=== PATIENT | female | born 1945 | race Caucasian/White ===

== ENCOUNTER 2023-07-06 06:07 | Day surgery (SDC) | payer OTHER ==
[~2023-07-06] VITALS: Ht 157.5 cm; Wt 73.5 kg
--- NOTE | 2023-07-06 06:30 | NUR ---
07/06/23 0630 Kristie Sheldon AT 0628 PLEDGET AT 0630
--- NOTE | 2023-07-06 08:26 | NUR ---
07/06/23 0826 Geo Mars iv removed intact. site wnl.
== END 2023-07-06 08:24 | disposition home or self-care (01) ==
LOC: ORSCSDS 06:07
PROVIDERS: Ophthalmology
PROC: 08RJ3JZ Replacement of Right Lens with Synthetic Substitute, Percutaneous Approach (ICD-10-PCS; principal; 2023-07-06 07:30)
DX: H25.11 Age-related nuclear cataract, right eye (principal); H35.3131 Nonexudative age-related macular degeneration, bilateral, early dry stage; H02.831 Dermatochalasis of right upper eyelid; H02.834 Dermatochalasis of left upper eyelid; H52.03 Hypermetropia, bilateral; H52.4 Presbyopia; H52.223 Regular astigmatism, bilateral; I10 Essential (primary) hypertension
CPT/HCPCS: J2250; J3010; J7040; V2632